=== PATIENT | male | born 1955 | race Caucasian/White ===

== ENCOUNTER 2020-09-07 11:46 | Emergency (ER) | payer MEDICAID, SELFPAY ==
[2020-09-07 11:55] VITALS: BP 138/75; PULSE 69; RESP 18; TEMP 36.3; O2SAT 99
--- NOTE | 2020-09-07 12:01 | W.ED.GENAD ---
Discharge Plan Disposition Patient Disposition: HOME Condition: Improving Discharge Details Clinical Impression: Alcohol abuse, Vomiting Primary Care Provider: Paula,Local ED Provider: Veronica Lundy Home Meds and New Rx's Prescriptions: New lorazepam [Ativan] 0.5 mg tablet 0.5 mg PO TID PRN (Reason: alcohol withdrawal) Qty: 6 RF: 0 ondansetron 4 mg tablet,disintegrating 4 mg PO TID PRN (Reason: nausea and vomiting) Qty: 6 RF: 0 Continued gabapentin 300 mg Capsule 600 mg PO TID RF: 0 bupropion HCl [Wellbutrin XL] 300 mg Tablet Extended Release 24 Hr 300 mg PO QAM RF: 0 Discharge Instructions Instructions: Abuse of Alcohol (ED) Additional Instructions: Take the Ativan as needed and directed for symptoms of withdrawal. Do not take any alcohol or other substances while taking the Ativan as this can increase the risk of respiratory depression or . Take the Zofran as needed and directed for nausea or vomiting. You can use the resources you were given by the track and field coach for alcohol rehabilitation or detoxification as needed. You can call [facility] if you decide to pursue any treatment or therapy for your depression. You will receive a call from care management regarding a follow-up appointment with the primary care doctor to establish care and for reevaluation. Return immediately to the emergency department if you develop any worsening or new concerning symptoms. Discharge Data Discharge Physician: Veornica Lundy Medical Decision Making 1200 -- 65-year-old male with a history of alcohol abuse presents with concern for alcohol withdrawal, shaking, vomiting as well as depression. Patient states he had thoughts of suicide but currently denies any suicidal and states he does not have a plan. He denies any previous history of suicide attempt. Heart rate on arrival 69. Blood pressure 138/75. He admits to feeling shaky but there are no signs of diaphoresis, tremors and he appears comfortable. Patient denies any complaint of chest pain, shortness of breath or abdominal pain. History and presentation does not appear consistent with ACS, PE, pancreatitis, etc. Do not see an indication for EKG or imaging at this time. We will obtain screening labs, alcohol, UDS. Will give a dose of Ativan due to his symptomatic feelings of withdrawal and previous history of DTs, bolus IV fluids, Zofran and reassess. Labs reviewed. Normal white blood cell count. Normal potassium. Minimal elevation of LFTs which appears baseline. UDS negative 1315 -- Alcohol level 30. Discussed with mental health that patient will be ready for evaluation at 2 PM when alcohol level is expected to be 0. 1415 -- Patient evaluated by mental health at bedside who cleared patient for discharge. He declined completing intake paperwork and does not want any referrals. He is currently not suicidal. Patient also discussed with track and field coach at bedside who was given referrals and information for rehab and covering bridges. Patient reassessed and he feels much better and would like to go home. His heart rate and blood pressure are within normal limits. He demonstrates no signs of alcohol withdrawal. A prescription for for a few tabs of Ativan and Zofran sent electronically to his pharmacy. He was advised to not drink any alcohol or take any other substances while taking Ativan due to risk of respiratory depression or and patient understands. He was placed on care management list to help arrange for an appointment with the primary care doctor to establish care. Medical Records Medical records reviewed: Yes I reviewed the patient's medical records. Lab Data Lab results reviewed: Yes I reviewed the patient's lab results. Labs: Laboratory Tests Range/Units 09/07/20 09/07/20 09/07/20 12:05 12:19 12:19 WBC Cancelled RBC Cancelled Hgb Cancelled Hct Cancelled MCV Cancelled MCH Cancelled MCHC Cancelled RDW Cancelled Plt Count Cancelled MPV Cancelled Immature Gran % Cancelled Neutrophils % Cancelled Band Neutrophils % Cancelled Lymphocytes % Cancelled Atypical Lymphs % Cancelled Monocytes % Cancelled Eosinophils % Cancelled Basophils % Cancelled Metamyelocytes % Cancelled Myelocytes % Cancelled Promyelocytes % Cancelled Other Cells % Cancelled Nucleated RBC % Cancelled Absolute Neutrophils Cancelled Absolute Lymphocytes Cancelled Absolute Monocytes Cancelled Absolute Eosinophils Cancelled Absolute Basophils Cancelled RBC Morphology Cancelled Polychromasia Cancelled Hypochromasia Cancelled Poikilocytosis Cancelled Basophilic Stippling Cancelled Anisocytosis Cancelled Microcytosis Cancelled Macrocytosis Cancelled Spherocytes Cancelled Tear Drop Cells Cancelled Ovalocytes Cancelled Stomatocytes Cancelled [place] Bodies Cancelled [place] Cells/Echinocytes Cancelled Acanthocytes (Spur) Cancelled Schistocytes Cancelled Sodium Cancelled Potassium Cancelled Chloride Cancelled Carbon Dioxide Cancelled Anion Gap Cancelled BUN Cancelled Creatinine Cancelled Estimated GFR/1.73 m2 Cancelled Glucose Cancelled Calcium Cancelled Total Bilirubin Cancelled AST Cancelled ALT Cancelled Alkaline Phosphatase Cancelled Total Protein Cancelled Albumin Cancelled Urine Opiates Screen (Negative) Negative Urine Methadone Screen (Negative) Negative Ur Barbiturates Screen (Negative) Negative Ur Tricyclics Screen (Negative) Negative Ur Amphetamines Screen (Negative) Negative U Benzodiazepines Scrn (Negative) Negative Urine Cocaine Screen (Negative) Negative Ur THC Screen (Negative) Negative Ethyl Alcohol Cancelled Range/Units 09/07/20 09/07/20 12:50 12:50 WBC 8.19 RBC 4.77 Hgb 15.4 Hct 44.2 MCV 92.7 MCH 32.3 MCHC 34.8 RDW 13.6 Plt Count 203 MPV 9.7 Immature Gran % 0.2 Neutrophils % 80.2 Band Neutrophils % Lymphocytes % 7.4 Atypical Lymphs % Monocytes % 11.4 Eosinophils % 0.4 Basophils % 0.4 Metamyelocytes % Myelocytes % Promyelocytes % Other Cells % Nucleated RBC % 0 Absolute Neutrophils 6.57 Absolute Lymphocytes 0.61 L Absolute Monocytes 0.93 H Absolute Eosinophils 0.03 Absolute Basophils 0.03 RBC Morphology Polychromasia Hypochromasia Poikilocytosis Basophilic Stippling Anisocytosis Microcytosis Macrocytosis Spherocytes Tear Drop Cells Ovalocytes Stomatocytes [place] Bodies Camila Cells/Echinocytes Acanthocytes (Spur) Schistocytes Sodium 133 L Potassium 3.5 Chloride 97 L Carbon Dioxide 23.0 Anion Gap 13.0 H BUN 12 Creatinine 0.7 Estimated GFR/1.73 m2 >= 60.00 Glucose 129 H Calcium 8.5 Total Bilirubin 0.8 AST 72 H ALT 127 H Alkaline Phosphatase 72 Total Protein 7.0 Albumin 3.6 Urine Opiates Screen (Negative) Urine Methadone Screen (Negative) Ur Barbiturates Screen (Negative) Ur Tricyclics Screen (Negative) Ur Amphetamines Screen (Negative) U Benzodiazepines Scrn (Negative) Urine Cocaine Screen (Negative) Ur THC Screen (Negative) Ethyl Alcohol 30.6 HPI General Mode of arrival: ambulatory. Date/Time Provider Initiated Documentation: 09/07/20 11:51. Limitations to Documentation: no limitations. Information obtained by: patient. HPI Narrative: Patient is a 65-year-old male with a history of colon cancer treated with resection, alcohol abuse, depression presents to the ED with concern for alcohol withdrawal. Patient states recently he has been drinking 12 beers daily. He states he drank 5 beers yesterday and 2 beers this morning and since yesterday he has been feeling symptoms of withdrawal. He states his symptoms include sweating and feeling shaky. He states he does have a history of DTs with alcohol withdrawal. He states he recently moved here from the [facility] 3 months ago to [place] but does not have a primary care doctor. He states he vomited twice since yesterday. Patient admitted to the nurses he is also feeling suicidal. Patient stated to me that he has been feeling symptoms of depression and is feeling suicidal at times but denies feeling suicidal at present. He states he currently is without a plan. He denies any history of suicide attempt. Related Data Home Medications Medication Instructions Recorded Confirmed bupropion HCl [Wellbutrin XL] 300 mg PO QAM 09/07/20 09/07/20 gabapentin 600 mg PO TID 09/07/20 09/07/20 lorazepam [Ativan] 0.5 mg PO TID PRN #6 tab 09/07/20 ondansetron 4 mg PO TID PRN #6 tab 09/07/20 Previous Rx's Medication Instructions Recorded lorazepam [Ativan] 0.5 mg PO TID PRN #6 tab 09/07/20 ondansetron 4 mg PO TID PRN #6 tab 09/07/20 Allergies Allergy/AdvReac Type Severity Reaction Status Date / Time No Known Allergies Allergy Unverified 09/07/20 11:52 Review of Systems All systems reviewed & are unremarkable except as noted in HPI and below Constitutional Constitutional: Reports as per HPI, Denies chills and Denies fever(s) Comments: sweats and shakes Eyes Eyes: Denies blurry vision ENT Ears, Nose, Mouth, and Throat: Denies dizziness, Denies sore throat and Denies throat swelling Cardiovascular Cardiovascular: Denies chest pain and Denies dyspnea Respiratory Respiratory: Denies cough and Denies dyspnea Gastrointestinal Gastrointestinal: Denies abdominal pain, Denies diarrhea and Denies vomiting Genitourinary Genitourinary: Denies hematuria and Denies dysuria Musculoskeletal Musculoskeletal: Denies back pain and Denies numbness Integumentary/Breasts Skin/Breast: Denies lesions and Denies rash Neurologic Neurologic: Denies dizziness, Denies localized weakness and Denies numbness Allergic/Immunologic Allergic/Immunologic: Denies throat swelling PFSH Medical History (Updated 09/07/20 @ 14:24 by Veronica Lundy DO) Alcohol abuse Colon cancer Depression Surgical History (Updated 09/07/20 @ 12:36 by Veronica Lundy DO) History of colon resection Social History Smoking/Tobacco Use Status: Never Smoking risk assessment performed?: Yes Drug use: Never Do you feel safe at home: Yes Do you feel safe in your relationship?: Yes Exam Const General: cooperative and no acute distress HENMT Head: normal to inspection Face and sinus: normal facial exam Eyes General: appearance normal, both eyes and all related structures Pupils: PERRL EOM: EOM intact bilaterally Neck Neck: normal visual inspection and No submandibular swelling Lymphatic: no lymphadenopathy noted Chest Chest: normal inspection of the chest and no tenderness Resp Effort & Inspection: normal respiratory effort and able to speak in complete sentences Auscultation: clear to auscultation bilaterally Cardio Rate: regular rate Rhythm: regular rhythm GI Inspection: normal to inspection Palpation: soft, not firm, not rigid and nontender Auscultation: normal bowel sounds Skin General skin exam: no rashes or lesions noted Neuro General: patient alert, patient awake and patient oriented x3 Cognition: normal cognition Speech: speech normal Motor: muscle tone normal throughout Sensory Exam: no sensory deficits noted Extrem General: normal to inspection, full ROM, capillary refill normal, no calf tenderness bilaterally and no edema Psych Appearance: grossly normal Mental Status: mental status grossly normal Speech and Movement: speech and movement normal Affect: normal affect
[2020-09-07] MEDS: Normal Saline 1,000 ML 1000 ML IV (12:30)
[2020-09-07] MEDS: LORazepam 2 MG/ML VIAL 0.5 MG IVP (12:30)
[2020-09-07] MEDS: Ondansetron 4 MG/2 ML VIAL IVP (12:30)
[2020-09-07 12:31] VITALS: BP 129/78; PULSE 61; PULSE 62; RESP 12; O2SAT 96
[2020-09-07 12:59] LABS: Abs Immature Grans 0.02 10^3/uL (0.0-0.06); Absolute Basophil Count 0.03 10^3/uL (0.0-0.2); Absolute Eosinophil Count 0.03 10^3/uL (0.0-0.7); Absolute Lymphocyte Count 0.61 10^3/uL (1.2-3.4); Absolute Monocyte Count 0.93 10^3/uL (0.1-0.8); Absolute Neutrophil Count 6.57 10^3/uL (1.2-6.7); Basophils % 0.4; Eosinophils % 0.4; HCT 44.2 % (40.0-50.0); HGB 15.4 g/dL (13.5-17.5); Immature Grans % 0.2; Lymphocytes % 7.4; MCH 32.3 pg (27.0-33.0); MCHC 34.8 % (32.0-36.0); MCV 92.7 fL (80-95); MPV 9.7 fL (8.0-11.0); Monocytes % 11.4; Neutrophils % 80.2; Nucleated RBC 0 %; Platelet Count 203 10^3/uL (130-400); RBC 4.77 10^6/uL (4.36-5.78); RDW 13.6 % (11.8-14.1); RDW-SD 46.6 fL; WBC 8.19 10^3/uL (4.4-10.8)
[2020-09-07 13:01] VITALS: BP 144/76; PULSE 54; PULSE 55; RESP 16
[2020-09-07 13:12] LABS: ALT 127 U/L (16-63); AST 72 U/L (15-37); Albumin 3.6 g/dL (3.4-5.0); Alkaline Phosphatase 72 U/L (46-116); BUN 12 mg/dL (7-18); Bilirubin, Total 0.8 mg/dL (0.2-1.0); CREATININE 0.7 mg/dL (0.70-1.30); Calcium 8.5 mg/dL (8.5-10.1); Chloride 97 mmol/L (98-107); ETHANOL BLOOD 30.6 mg/dL (<3); Glucose 129 mg/dL (74-106); Potassium 3.5 mmol/L (3.5-5.1); Sodium 133 mmol/L (136-145)
[2020-09-07 13:28] LABS: *AMPHETAMINES SCREEN URINE Negative (Negative); *BARBITURATES SCREEN URINE Negative (Negative); *BENZODIAZEPINES SCREEN URINE Negative (Negative); Cannabinoids THC Negative (Negative); Cocaine Screen,Urine Negative (Negative); METHADONE URINE SCREEN Negative (Negative); OPIATES URINE SCREEN Negative (Negative)
[2020-09-07 13:29] LABS: Tricyclic Antidepressants Negative (Negative)
[2020-09-07 13:54] VITALS: O2SAT 96
--- NOTE | 2020-09-07 14:40 | NUR.NOTE ---
Nursing Note: Referral given to Care Management to establish care w/PCP with routine follow up. Sania Murillo
--- NOTE | 2020-09-07 14:43 | PDOC.MHCN_ITS ---
Date of service: 09/07/20 Time of Service: 14:44 Mental Health Crisis Note Presenting Issue How did you arrive at the ED and why did you come: Client arrived at [facility] Ed on 09/07/20 for alcohol withdrawal. Client states that he wants to cut down on his drinking, but is not sure if he can do this on his own. Client states he on a normal day drinks about 15 beers a day, but states that yesterday he drank 5 beers and he drank 2 beers today before presenting at [facility] ED. Client states that he drinks first thing when he wakes up in the morning and drinks throughout the day until he goes to bed at night. When talking with nurse client stated that he has been feeling depressed a lot and endorsed SI, however when this automotive service writer and Doctor talked to client he denied SI with no plan or intent. Precipitating Factors Client endorsed SI to nurse, but denies SI/HI to this automotive service writer with no plan or intent. Client states that he had thoughts of harming himself this morning at about 2:30 a.m. but states that he has no plan. Disposition BEHAVIOR: Client is sleeping when this automotive service writer arrives in person, but wakes up and somewhat engages with this automotive service writer. Client appears to be withdrawn and gives very short answers. At the beginning of conversation client states that he wants help to stop drinking, but towards the end of the assessment client states he is unsure of what he wants. He states: once I get through this (having the shakes/vomiting) I think that I will be better. EYE CONTACT: Client gives minimal eye contact, some of the time making eye contact when answering questions the rest of the time his eyes are closed or are looking at the wall. MOOD: Clients mood appears to be depressed. AFFECT: Client has very flat affect, showing no engaging emotions. APPETITE: Client states that he has no appetite. SLEEP(trouble falling/staying asleep: Client states that he does not sleep very well, trouble falling asleep and staying asleep. Client also states that he sleep around 3-4 hours a night. Plan Client refused intake paperwork for [facility]. soccer coach from [facility] will be presenting to ED to talk to client. [facility] Crisis line # given to client. Client will call [facility] crisis line if he is feeling overwhelmed and needs somebody to talk to. Signature Clinician's Name/Title: Comfort Lau [facility] Emergnecy Clinician
[2020-09-07 15:01] VITALS: BP 127/58; PULSE 56; PULSE 61; RESP 13; O2SAT 98
== END 2020-09-07 15:38 | disposition home or self-care (01) ==
PROVIDERS: Emergency Provider Physician Assistant
DX: F10.130 Alcohol abuse with withdrawal, uncomplicated (principal); R11.10 Vomiting, unspecified; R25.1 Tremor, unspecified; Y90.1 Blood alcohol level of 20-39 mg/100 ml
CPT/HCPCS: 36415; 80053; 80307; 96361; 96374; 96375; 99284; 80320; 85025; J2060; J2405